=== PATIENT | female | born 1930 | race Caucasian/White ===

== ENCOUNTER 2016-07-26 07:56 | Day surgery (SDC) | payer MEDICARE, MEDICAID ==
[~2016-07-26 07:56] MED LIST: FENTANYL 250 MCG/5 ML AMP IV PRN; LACTATED RINGERS 1,000 ML IV SCH; LIDOCAINE Viscous 2% 15 ML UDCUP PO PRN; MIDAZOLAM HCL 5 MG/5 ML VIAL IV PRN
[2016-07-26] MEDS ORDERED: LACTATED RINGERS 1,000 ML ONE (07:57)
[2016-07-26] MEDS ORDERED: IV START KIT ONE (07:58)
[2016-07-26] MEDS ORDERED: FENTANYL 100 MCG/2 ML VIAL ONE (08:55)
[2016-07-26] MEDS ORDERED: MIDAZOLAM HCL 5 MG/5 ML VIAL ONE (08:55)
[2016-07-26] MEDS ORDERED: LIDOCAINE Viscous 2% 15 ML UDCUP ONE (08:55)
[2016-07-26 13:37] LABS: HELICOBACTER PYLORII DETECTION NEGATIVE (NEGATIVE)
--- NOTE | 2016-07-30 12:36 | SURGPATH ---
[facility] [address] [place] [id number] Patient Name: JESSI LORD MR#: [id number] : 1930 Gender: F Specimen #: [id number] Collected: 07/26/2016 Received: 07/27/2016 Reported: 07/30/2016 Submitting Phys: MAYITO JOSEPH Copy To Phys: [facility] KARLI SULLIVAN Clinical History / Pre-Operative Diagnosis: UPPER ABDOMINAL PAIN WITH HEARTBURN; NAUSEA; RULE OUT GIARDIA, CELIAC SPRUE AND GASTRITIS Specimen Source / Surgical Procedure Performed: #1-DUODENAL; #2-ANTRAL Interpretation: 1. DUODENUM, BIOPSY: - SMALL BOWEL MUCOSA WITH NO DIAGNOSTIC ABNORMALITY 2. STOMACH, ANTRUM, BIOPSY: - FOCAL ACTIVE GASTRITIS, NO INTESTINAL METAPLASIA OR DYSPLASIA Electronically Signed Out [facility] M.D. Gross Description: #1 The specimen is received in a formalin filled container labeled with the patient's name and "duodenal". A single gomez biopsy is 0.5 cm. Totally embedded in cassette #1. #2 The specimen is received in a formalin filled container labeled with the patient's name and "antral". Two gomez biopsies are 0.3 and 0.5 cm. Totally embedded in cassette #2. Terell Mcduffie Microscopic Description: 1. Sections show fragments of small bowel mucosa with long and well preserved villous processes. There is no significant inflammation and lymphocytes are not increased within the epithelium. No infectious organisms are identified and there is no dysplasia. 2. Sections show fragments of gastric mucosa. There is focal active inflammation without a significant chronic inflammatory infiltrate. No Helicobacter organisms are identified and there is no intestinal metaplasia or dysplasia 1: [id number] 2: [id number] K29.00
== END 2016-07-26 10:33 | disposition home or self-care (01) ==
LOC: SDC 07:56
PROVIDERS: ATTEND Internal Medicine Gastroenterology
PROC: 0DB68ZX Excision of Stomach, Via Natural or Artificial Opening Endoscopic, Diagnostic (ICD-10-PCS; principal; 2016-07-26)
PROC: 0DB98ZX Excision of Duodenum, Via Natural or Artificial Opening Endoscopic, Diagnostic (ICD-10-PCS; 2016-07-26)
DX: K29.70 Gastritis, unspecified, without bleeding (principal); K29.80 Duodenitis without bleeding; M79.1 Myalgia; G89.29 Other chronic pain; F41.9 Anxiety disorder, unspecified; F32.9 Major depressive disorder, single episode, unspecified; M81.0 Age-related osteoporosis without current pathological fracture; G25.81 Restless legs syndrome; E55.9 Vitamin D deficiency, unspecified; Z88.5 Allergy status to narcotic agent; Z88.8 Allergy status to other drugs, medicaments and biological substances; Z79.82 Long term (current) use of aspirin